=== PATIENT | female | born 1980 | race Two or more races ===

== ENCOUNTER 2020-09-23 04:00 | Emergency (ER) | payer OTHER ==
[~2020-09-23] VITALS: Ht 157.5 cm; Wt 90.9 kg
[~2020-09-23 04:00] MED LIST: ALBU17AE16 IH; IBUP-2088 PO
[2020-09-23] MEDS ORDERED: IPRATROPIUM BROMIDE 0.5 MG/2.5 ML NEB SOLUTION NEB ONE (04:30)
[2020-09-23] MEDS ORDERED: ALBUTEROL SULFATE 2.5 MG/0.5 ML NEB SOLUTION NEB ONE (04:30)
[2020-09-23] MEDS ORDERED: MethylPREDNISolone SOD SUCC 125 MG/2 ML VIAL IVP ONE (04:30)
[2020-09-23 04:31] LABS: BASOPHILS % (AUTO) 0.8 % (0.0-2.0); EOSINOPHILS % (AUTO) 2.7 % (1.0-6.0); HEMATOCRIT 43.2 % (36-46); LYMPHOCYTES # (AUTO) 2.7 K/uL (1.0-4.8); LYMPHOCYTES % (AUTO) 42.1 % (22.0-44.0); MEAN CORPUSCULAR HEMOGLOBIN 26.6 pg (26.0-34.0); MEAN CORPUSCULAR HGB CONC 32.5 G/dL (31.0-37.0); MEAN CORPUSCULAR VOLUME 82 fL (80-100); MONOCYTES # (AUTO) 0.2 K/uL (0.1-1.0); MONOCYTES % (AUTO) 3.1 % (2.0-9.0); NEUTROPHILS # (AUTO) 3.3 K/uL (1.8-7.7); NEUTROPHILS % (AUTO) 51.3 % (40.0-70.0); PLATELET COUNT (AUTO) 372 K/uL (150-450); RED BLOOD CELL COUNT(AUTO) 5.27 MIL/uL (4.00-5.20)
[2020-09-23 04:40] LABS: ANION GAP 9 mmol/L (8-16); CALCIUM, TOTAL 8.6 mg/dL (8.8-10.5); CARBON DIOXIDE 27 mmol/L (22-29); CHLORIDE 101 mmol/L (98-107); GLOMERULAR FILTR. RATE CALC > 60 mL/min (>60); GLUCOSE,RANDOM 136 mg/dL (70-110); POTASSIUM 3.5 mmol/L (3.5-5.1); SODIUM SERUM 137 mmol/L (136-145); UREA NITROGEN, BLOOD 18 mg/dL (7-18)
[2020-09-23 04:51] LABS: COVID AG,FIA SOURCE NASOPHARYNGEAL
[2020-09-23] MEDS ORDERED: LORATADINE 10 MG TABLET PO ONE (05:00)
[2020-09-23] MEDS ORDERED: ALBUTEROL SULFATE HFA 90 MCG/PUFF 8 GM INHALER IH ONE (05:00)
[2020-09-23 05:11] LABS: ALANINE AMINOTRANSFERASE 31 U/L (12-78); ALBUMIN 4.1 g/dL (3.4-5.0); ALKALINE PHOSPHATASE 139 U/L (46-116); ASPARTATE AMINOTRANSFERASE 22 U/L (15-37); BILIRUBIN,TOTAL 0.4 mg/dL (0.1-1.0); CREATINE KINASE, TOTAL ONLY 106 U/L (26-192); HCG,QUANTITATIVE < 1 mIU/mL (0-6); TOTAL PROTEIN, SERUM 7.6 g/dL (6.4-8.2)
[2020-09-23 05:15] VITALS: BP 126/83
[2020-09-23 05:19] LABS: B-TYPE NATRIURETIC PEPTIDE < 5 pg/mL (0-100)
== END 2020-09-23 05:34 | disposition home or self-care (01) ==
LOC: EMS 04:00
DX: J45.901 Unspecified asthma with (acute) exacerbation (principal); Z90.49 Acquired absence of other specified parts of digestive tract; Z20.822 Contact with and (suspected) exposure to COVID-19
CPT/HCPCS: 71045; 80053; 82550; 83880; 84484; 84702; 85025; 87426; 93005; 94640; 96374; 99285; J2930; U0003; J3535; J7613

== ENCOUNTER 2020-12-09 05:32 | Emergency (ER) | payer OTHER ==
[~2020-12-09] VITALS: Ht 157.5 cm; Wt 90.9 kg
[2020-12-09] MEDS ORDERED: ALBUTEROL SULFATE 5 MG/ML 20 ML NEB SOLN [BULK] NEB ONE (06:00)
[2020-12-09] MEDS ORDERED: IPRATROPIUM BROMIDE 0.5 MG/2.5 ML NEB SOLUTION NEB ONE (06:00)
[2020-12-09] MEDS ORDERED: PredniSONE 20 MG TABLET PO ONE (06:00)
[2020-12-09 06:41] VITALS: BP 153/96
[2020-12-09] MEDS ORDERED: ALBUTEROL SULFATE HFA 90 MCG/PUFF 8 GM INHALER IH ONE (07:30)
== END 2020-12-09 07:52 | disposition home or self-care (01) ==
LOC: EMS 05:33
DX: J45.909 Unspecified asthma, uncomplicated (principal); F17.210 Nicotine dependence, cigarettes, uncomplicated; Z79.899 Other long term (current) drug therapy
CPT/HCPCS: 94640; 94644; 99285; J7512; J3535

== ENCOUNTER 2021-03-31 19:40 | Emergency (ER) | payer OTHER ==
[~2021-03-31] VITALS: Ht 160 cm; Wt 90.9 kg
[2021-03-31 19:48] VITALS: BP 130/83
== END 2021-03-31 21:30 | disposition left against medical advice (07) ==
LOC: EMS 19:41
DX: J45.909 Unspecified asthma, uncomplicated (principal); Z53.21 Procedure and treatment not carried out due to patient leaving prior to being seen by health care provider

== ENCOUNTER 2021-12-30 18:01 | Emergency (ER) | payer OTHER ==
[~2021-12-30] VITALS: Ht 154.9 cm; Wt 92.0 kg
[2021-12-30 18:03] VITALS: BP 135/101
== END 2021-12-30 21:40 | disposition left against medical advice (07) ==
LOC: EMS 18:01
DX: Z53.21 Procedure and treatment not carried out due to patient leaving prior to being seen by health care provider (principal)

== ENCOUNTER 2023-07-16 11:01 | Emergency (ER) | payer OTHER ==
[~2023-07-16] VITALS: Ht 157.5 cm; Wt 90.9 kg
[2023-07-16 11:07] VITALS: TEMP 98
[2023-07-16] MEDS: DiphenhydrAMINE HCL 25 MG CAPSULE PO ONE (12:48)
[2023-07-16] MEDS: PredniSONE 20 MG TABLET PO ONE (12:48)
[2023-07-16] MEDS ORDERED: DIPH-1243 PO (12:57)
[2023-07-16] MEDS ORDERED: PRED-554 PO (12:57)
[2023-07-16] MEDS ORDERED: TACR30OI4 TP (12:57)
[2023-07-16 13:01] VITALS: BP 138/79; PULSE 89; RESP 18
== END 2023-07-16 13:07 | disposition home or self-care (01) ==
LOC: EMS 11:01
DX: L25.9 Unspecified contact dermatitis, unspecified cause (principal); J45.909 Unspecified asthma, uncomplicated; F17.210 Nicotine dependence, cigarettes, uncomplicated; Z90.49 Acquired absence of other specified parts of digestive tract
CPT/HCPCS: 99283; J7512